=== PATIENT | female | born 1940 | race American Indian/Alaskan Native ===

== ENCOUNTER 2016-06-01 18:11 | Emergency (ER) | payer MEDICARE ==
[2016-06-01 20:56] LABS: Basophils % (Auto) 0.6 % (0.0-1.8); Eosinophils % (Auto) 1.4 % (0.0-4.3); Hematocrit 31.9 % (30.3-42.9); Hemoglobin 10.5 gm/dl (10.1-14.3); Mean Corpuscular HGB Conc 33 % (30-34); Mean Corpuscular Hemoglobin 31 pg (28-32); Mean Corpuscular Volume 94 fl (79-97); Platelet Count 276 K/mm3 (140-440); Red Blood Count 3.41 M/mm3 (3.65-5.03); Red Cell Distribution Width 13.1 % (13.2-15.2); White Blood Count 7.7 K/mm3 (4.5-11.0)
[2016-06-01 21:27] LABS: Bilirubin,Urine NEG (Negative); Blood,Urine NEG (Negative); Ketones,Urine NEG (Negative); Leukocyte Esterase,Urine TR (Negative); Mucus,Urine 1+ /HPF; Nitrite,Urine NEG (Negative); Protein,Urine <15 mg/dL mg/dL (Negative); Urobilinogen,Urine < 2.0 mg/dL (<2.0)
[2016-06-01 21:27] LABS: Alanine Aminotransferase 16 units/L (7-56); Albumin 4.1 g/dL (3.9-5); Albumin/Globulin Ratio 1.4 %; Alkaline Phosphatase 57 units/L (35-129); Anion Gap 17 mmol/L; Bilirubin,Total < 0.2 mg/dL (0.1-1.2); Blood Urea Nitrogen 22 mg/dL (7-17); Calcium 9.7 mg/dL (8.4-10.2); Carbon Dioxide 26 mmol/L (22-30); Chloride 98.1 mmol/L (98-107); Glucose 88 mg/dL (65-100); Lipase 212 units/L (13-60); Potassium 4.5 mmol/L (3.6-5.0); Sodium 137 mmol/L (137-145)
[2016-06-02 04:41] VITALS: BP 150/64
--- NOTE | 2016-06-02 07:05 | Emergency Department Report ---
HPI - General Chief Complaint: Abdominal Pain Time Seen by Provider: 06/02/16 06:44 - HPI HPI: Chief complaint: Abdominal discomfort and lightheadedness HPI: Patient is a 75-year-old female with a history of [id number] diabetes, arthritis, dementia and hypertension who presents today with a feeling of discomfort in her upper abdomen especially on the right. Patient is status post appendectomy and cholecystectomy as well as tubal ligation. Patient denies any nausea vomiting diarrhea or fever. Patient has been having a sharp chest pain intermittently for months that shoots across her anterior chest that lasts 2-3 minutes. Patient states she has about once a week and had an episode yesterday as well as one while she was here. Patient denies any shortness of breath or diaphoresis. Patient denies history of MD. Mode of arrival: private car Source: Patient Began: 5 days Duration: Days Context: See above Quality: Feels like a knot Severity: 3 out of 10 Improved with: Nothing Worsened with: Nothing Associated signs and symptoms: See above ED Past Medical Hx - Past Medical History Previous Medical History?: Yes Hx Hypertension: Yes Hx Diabetes: Yes Hx Arthritis: Yes Hx Dementia: Yes Additional medical history: high cholesterol - Surgical History Past Surgical History?: Yes Hx Cholecystectomy: Yes Hx Appendectomy: Yes Additional Surgical History: tubal ligation - Social History Smoking Status: Never Smoker Substance Use Type: None - Medications Home Medications: Home Medications Medication Instructions Recorded Confirmed Last Taken Type AtorvaSTATin [Lipitor] 40 mg PO HS 06/02/16 06/02/16 1 Day Ago History 40 Losartan [Cozaar] 25 mg PO QDAY 06/02/16 06/02/16 1 Day Ago History 25 Mirabegron [Myrbetriq] 50 mg PO QDAY 06/02/16 06/02/16 1 Day Ago History 50 amLODIPine [Norvasc] 5 mg PO DAILY 06/02/16 06/02/16 1 Day Ago History 5 metFORMIN [Glucophage] 500 mg PO BID 06/02/16 06/02/16 1 Day Ago History 500 traMADol [Ultram] 50 mg PO Q6HR PRN 06/02/16 06/02/16 1 Day Ago History 50 ED Review of Systems ROS: Stated complaint: ABD PAIN Other details as noted in HPI ROS Constitutional: No fever ENT: No uri symptoms Cardiovascular: chest pain Respiratory: No sob or cough GI: No nausea vomiting or diarrhea : No dysuria frequency or urgency, Skin: No rash Neuro: No focal weakness or numbness Psych: No depression Brad/lymph: No edema Physical Exam - Physical Exam Vital Signs: Vital Signs 06/01/16 06/02/16 06/02/16 19:56 02:58 04:00 Temperature 98.3 F 98.4 F Pulse Rate 79 76 72 Respiratory 18 20 16 Rate Blood Pressure 141/64 Blood Pressure 163/80 150/64 [Left] O2 Sat by Pulse 100 100 110 H Oximetry 06/02/16 04:41 Temperature Pulse Rate Respiratory 18 Rate Blood Pressure Blood Pressure [Left] O2 Sat by Pulse 100 Oximetry Physical Exam: GENERAL: The patient is well-developed well-nourished . HEENT: Normocephalic. Atraumatic. Extraocular motions are intact. Patient has moist mucous membranes. NECK: Supple. No meningitic signs are noted. There is no adenopathy noted. CHEST/LUNGS: Clear to auscultation. There is no respiratory distress noted. HEART/CARDIOVASCULAR: Regular. There is no tachycardia. There is no gallop rub or murmur. ABDOMEN: Abdomen is soft, nontender. Patient has normal bowel sounds. There is no abdominal distention. SKIN: There is no rash. There is no edema. There is no diaphoresis. NEURO: The patient is awake, alert, and oriented. The patient is cooperative. The patient has no focal neurologic deficits. The patient has normal speech. MUSCULOSKELETAL: There is no tenderness or deformity. There is no limitation range of motion. There is no evidence of acute injury. ED Course Vital Signs 06/01/16 06/02/16 06/02/16 19:56 02:58 04:00 Temperature 98.3 F 98.4 F Pulse Rate 79 76 72 Respiratory 18 20 16 Rate Blood Pressure 141/64 Blood Pressure 163/80 150/64 [Left] O2 Sat by Pulse 100 100 110 H Oximetry 06/02/16 04:41 Temperature Pulse Rate Respiratory 18 Rate Blood Pressure Blood Pressure [Left] O2 Sat by Pulse 100 Oximetry ED Medical Decision Making - Lab Data Result diagrams: 06/01/16 20:24 06/01/16 20:24 Laboratory Tests 06/01/16 06/02/16 06/02/16 20:24 03:38 05:50 Troponin T < 0.010 < 0.010 Lipase 212 H - EKG Data -: EKG Interpreted by Me EKG shows normal: sinus rhythm Rate: normal (74) - EKG Data Interpretation: normal EKG 06/02/16 07:04 Repeat EKG done at 3:00 this morning is still showing normal sinus rhythm at a rate of 70. Critical care attestation.: If time is entered above; I have spent that time in minutes in the direct care of this critically ill patient, excluding procedure time. ED Disposition Clinical Impression: Elevated lipase, Atypical chest pain Disposition: DISCHARGED TO HOME OR SELFCARE Is pt being admited?: No Does the pt Need Aspirin: No Instructions: Abdominal Pain (ED), Chest Pain (ED) Referrals: GRISELDA HOWARD DO [Primary Care Provider] - 2-3 Days [facility] [Provider Group] - 2-3 Days Time of Disposition: 09:23
[2016-06-02] MEDS ORDERED: CALCIUM CHLORIDE IV ONE (07:18)
--- NOTE | 2016-06-02 07:18 | XRay Report ---
AP CHEST: HISTORY: chest pain AP view of the chest demonstrates a normal mediastinal and cardiac contour with clear lungs and normal bony and soft tissue structures. IMPRESSION: Unremarkable AP chest.
[2016-06-02] MEDS ORDERED: NACL ONE (07:48)
[2016-06-02] MEDS ORDERED: ZOFRAN ONE (08:13)
--- NOTE | 2016-06-02 08:53 | Cat Scan Report ---
CT of the abdomen and pelvis with IV and oral contrast. History: Abdominal pain. Findings: The liver, spleen, and pancreas are normal. The gallbladder has been removed. The kidneys are normal in size and configuration with no evidence of mass or hydronephrosis. Multiple uterine fibroids with calcification are noted. No additional pelvic masses are seen. There are no pelvic fluid collections or mesenteric inflammatory changes. There is no free air. Impression: No acute findings. Multiple uterine fibroids are noted. Status post cholecystectomy.
--- NOTE | 2016-06-02 09:12 | Admit Criteria Form ---
Admission Criteria Documentation: PANCREATITIS Clinical Indications for Admission to Inpatient Care (Place 'X' for any and all applicable criteria): Admission is indicated for ANY ONE of the following (1)(2)(3)(4): [ X]I. Acute pancreatitis[A] as indicated by 2 or more of the following: [X ]a) Abdominal pain (eg, epigastric, left upper quadrant) [X ]b) Serum amylase or serum lipase greater than 3 times the upper limit of normal [ ]c) Characteristic findings from abdominal imaging (eg, pancreatic inflammation, pancreatic necrosis, peripancreatic fluid collection)[B] [ ]II. Pancreatitis (acute or chronic) requiring inpatient care as indicated by 1 or more of the following: [ ]a) Inability to maintain oral hydration Hypoxemia [ ]b) Evidence of infection (eg, fever, peripancreatic abscess) [ ]c) Severe pain requiring acute inpatient management [ ]d) Hemodynamic instability [ ]e) Hypoxemia [ ]f) Acute renal failure [ ]g) Severe electrolyte abnormalities Extended stay beyond goal length of stay may be needed for (1)(11) [ ]a) Severe acute pancreatitis (10)(19) [ ]b) Persistent symptoms, ascites, or pleural effusion [ ]c) Abdominal compartment syndrome (10) [ ]d) Late complications [ ]e) Acute renal failure (27) [ ]f) Gallstones in gallbladder The original [employer] content created by [employer] has been revised. The portions of the content which have been revised are identified through the use of italic text or in bold,and [facility] has neither reviewed nor approved the modified material.All other unmodified content is copyright [employer]. Please see references footnoted in the original [employer] edition 2016
== END 2016-06-02 09:42 | disposition home or self-care (01) ==
LOC: ED 18:11
DX: R07.89 Other chest pain (principal); R74.8 Abnormal levels of other serum enzymes; I10 Essential (primary) hypertension; E11.9 Type 2 diabetes mellitus without complications; M19.019 Primary osteoarthritis, unspecified shoulder; E78.00 Pure hypercholesterolemia, unspecified; F03.90 Unspecified dementia, unspecified severity, without behavioral disturbance, psychotic disturbance, mood disturbance, and anxiety; Z90.49 Acquired absence of other specified parts of digestive tract
CPT/HCPCS: 36415; 71010; 74177; 80053; 81001; 83690; 84484; 85025; 93005; 93010; 99285; J2405; Q9967

== ENCOUNTER 2017-01-30 10:54 | Outpatient (CLI) | payer MEDICARE ==
--- NOTE | 2017-01-30 12:05 | Mammography Report ---
Screening mammogram: There is a heterogeneously dense fibroglandular pattern which is symmetric in distribution. The is a biopsy marker in a left nodular density. These findings are all unchanged compared to prior exam in January 2016. There are no new findings. CAD used. Impression: Stable breast pattern. Recommendation donor Annual mammogram followup. BI-RADS CATEGORY: 1 = Negative ACR BI-RADS MAMMOGRAPHIC CODES: 0 = Needs additional imaging evaluation; 1 = Negative; 2 = Benign; 3 = Probably benign; 4 = Suspicious; 5 = Malignant; 6 = Known biopsy-proven malignancy COMMENT: 1. Dense breast tissue, i.e., adenosis, fibrocystic changes, etc., may obscure an underlying neoplasm. 2. Approximately 10% of cancers are not detected with mammography. 3. A negative mammography report should not delay biopsy if a clinically suspicious mass is present.
== END 2017-01-30 10:55 | disposition home or self-care (01) ==
LOC: MAMMO 10:54
PROVIDERS: ATTEND Family Medicine
DX: Z12.31 Encounter for screening mammogram for malignant neoplasm of breast (principal)
CPT/HCPCS: 77067; G0202

== ENCOUNTER 2017-02-23 06:11 | Day surgery (SDC) | payer MEDICARE ==
[2017-02-23 07:38] LABS: Hematocrit 30.7 % (30.3-42.9); Hemoglobin 10.2 gm/dl (10.1-14.3); Mean Corpuscular HGB Conc 33 % (30-34); Mean Corpuscular Hemoglobin 31 pg (28-32); Mean Corpuscular Volume 93 fl (79-97); Platelet Count 283 K/mm3 (140-440); Red Cell Distribution Width 13.3 % (13.2-15.2)
[2017-02-23 07:49] LABS: INR 0.85 (0.87-1.13); Partial Thromboplastin Time 22.4 Sec. (24.2-36.6)
[2017-02-23] MEDS ORDERED: VERSED IV ONE ×2 (08:32→09:00)
[2017-02-23] MEDS ORDERED: SUBLIMAZE ONE (08:33)
[2017-02-23] MEDS ORDERED: SUBLIMAZE IV ONE (09:00)
[2017-02-23 10:22] VITALS: BP 126/68
--- NOTE | 2017-02-23 10:25 | Short Stay Summary ---
Short Stay Documentation Date of service: 02/23/17 - History Principal diagnosis: Anemia Past Medical History: anemia - Allergies and Medications Current Medications: Allergies No Known Allergies Allergy (Verified 06/02/16 07:22) Home Medications Medication Instructions Recorded Confirmed Last Taken Type AtorvaSTATin [Lipitor] 40 mg PO HS 06/02/16 02/23/17 02/22/17 History 40mg Losartan [Cozaar] 25 mg PO QDAY 06/02/16 02/23/17 02/22/17 History 25mg metFORMIN [Glucophage] 500 mg PO BID 06/02/16 02/23/17 02/22/17 History 500mg ALBUTEROL Inhaler [ProAir HFA 2 puff INHALATION PRN PRN 02/23/17 02/23/17 History Inhaler] 2 puffs Aspirin EC [Aspirin Enteric Coated 81 mg PO QDAY 02/23/17 02/23/17 02/17/17 History TAB] 81mg Gabapentin [Gabapentin] 100 mg PO TID 02/23/17 02/23/17 02/22/17 History 100mg Naproxen Sodium [Anaprox Ds] 550 mg PO DAILY 02/23/17 02/23/17 02/22/17 History 550mg Omeprazole [Omeprazole] 20 mg PO DAILY 02/23/17 02/23/17 02/22/17 History 20mg - Physical exam General appearance: no acute distress - Brief post op/procedure progress note Date of procedure: 02/23/17 Pre-op diagnosis: Anemia Post-op diagnosis: same Anesthesia: local Surgeon: RENÉ MARTINEZ Estimated blood loss: none Pathology: list Condition: stable - Disposition Condition at discharge: Good Disposition: DC-01 TO HOME OR SELFCARE Short Stay Discharge Plan Additional Instructions: Make follow up appointment With Follow up with: GRISELDA HOWARD DO [Primary Care Provider] - 7 Days Forms: Post Sedation D/C Instructions
--- NOTE | 2017-02-23 11:18 | Cat Scan Report ---
CT-guided bone marrow biopsy and aspiration. History: Anemia. Procedure: The patient was placed in the prone position. The skin surface overlying the right posterior iliac bone was prepped and draped using sterile technique. Local anesthetic was injected into the skin. Using CT guidance, a 13-gauge bone biopsy device was advanced into the marrow space of the right iliac bone. Satisfactory localization was accomplished. Multiple aspirates and a core biopsy were performed. Adequate tissue was obtained. Intravenous conscious sedation was utilized. Intraservice time was 30 minutes. Independent cardiorespiratory monitoring was performed by the outpatient procedure nurse for 30 minutes, supervised by me. The patient tolerated the procedure well clinically and was sent to the outpatient procedure unit for further short term evaluation. There were no complications.
[2017-02-23 11:34] LABS: Anisocytosis 1+; Basophils % (Manual) 0 % (0.0-1.8); Blastocytes % (Manual) 0 %; Ovalocytes 1+; Spherocytes Few; Tear Drop Cells Rare
[2017-02-23 11:35] LABS: Diff Status Complete
[2017-03-03 10:52] LABS: CYTOMETRY FIRST MARKER SCANNED INTOMED REC; FLOW CYTOMETRY >16 SCANNED INTO MED REC
== END 2017-02-23 10:40 | disposition home or self-care (01) ==
LOC: CATHLABREC 06:11 → EDSTATUS 08:30 → CATHLABREC 10:40
DX: D64.9 Anemia, unspecified (principal); I10 Essential (primary) hypertension; E78.00 Pure hypercholesterolemia, unspecified; E11.9 Type 2 diabetes mellitus without complications; M19.90 Unspecified osteoarthritis, unspecified site; Z90.49 Acquired absence of other specified parts of digestive tract; Z90.89 Acquired absence of other organs; Z82.49 Family history of ischemic heart disease and other diseases of the circulatory system; Z80.0 Family history of malignant neoplasm of digestive organs; Z98.890 Other specified postprocedural states; Z79.82 Long term (current) use of aspirin; Z79.84 Long term (current) use of oral hypoglycemic drugs; Z79.899 Other long term (current) drug therapy; Z88.1 Allergy status to other antibiotic agents; Z79.01 Long term (current) use of anticoagulants
CPT/HCPCS: 36415; 38221; 77012; 82962; 85007; 85025; 85097; 85610; 85730; 88184; 88185; 88230; 88291; 88305; 99156; 99157; J2250; J3010; 88161; 88311; 88313